=== PATIENT | female | born 1955 | race American Indian/Alaskan Native ===

== ENCOUNTER 2017-02-07 08:24 | Day surgery (SDC) | payer MEDICARE ==
[~2017-02-07 08:24] MED LIST: ANCEF/STERILE WATER 2 GM/20 ML 2 GM/20 ML SYRINGE IV NR; HEPARIN 10,000 UNITS/10 ML ONE; MARCAINE 0.5% INFILTRATI ONE; NACL 0.9% 1000 ML 1,000 ML IV SCH; NACL 0.9% 500 ML 500 ML ONE; NITROGLYCERIN SYRINGE 3 ML ONE; PROTAMINE SULFATE ONE
[2017-02-07] MEDS ORDERED: DILAUDID IV PRN (08:59)
--- NOTE | 2017-02-07 08:59 | Anesthesia Day of Surgery ---
Anesthesia Day of Surgery - Day of Surgery Patient Examined: Yes Patient H&P Reviewed: Yes Patient is NPO: Yes
[2017-02-07] MEDS ORDERED: PEPCID PO NR (09:00)
--- NOTE | 2017-02-07 09:01 | Anesthesia Consultation ---
Anesthesia Consult and Med Hx Date of service: 02/07/17 - Airway Anesthetic Teeth Evaluation: Good ROM Head & Neck: Adequate Mental/Hyoid Distance: Adequate Mallampati Class: Class II Intubation Access Assessment: Probably Good - Pulmonary Exam CTA: Yes - Cardiac Exam Cardiac Exam: RRR - Pre-Operative Health Status ASA Pre-Surgery Classification: ASA3, ASA4 Proposed Anesthetic Plan: General - Pulmonary Hx Smoking: Yes (1/2 PPD) Hx Asthma: Yes COPD: Yes Home Oxygen Therapy: No Hx Pneumonia: No Hx Sleep Apnea: Yes (No CPAP) - Cardiovascular System Hx Hypertension: Yes (X 16 YRS) Hx Coronary Artery Disease: No Hx Peripheral Vascular Disease: No - Central Nervous System Hx Seizures: No Hx Back Pain: No Hx Psychiatric Problems: No - Gastrointestinal Hx Gastroesophageal Reflux Disease: No - Endocrine Hx Renal Disease: Yes (CKD Stage 4, NOT ON DIALYSIS) Hx End Stage Renal Disease: No Hx Non-Insulin Dependent Diabetes: Yes (DENIES) Hx Thyroid Disease: No - Other Systems Hx Alcohol Use: No Hx Substance Use: No Hx Cancer: No Hx Obesity: Yes (BMI=35)
[2017-02-07] MEDS ORDERED: ZOFRAN IV PRN (09:30)
[2017-02-07 09:44] LABS: Basophils % (Auto) 0.7 % (0.0-1.8); Hematocrit 32.4 % (30.3-42.9); Hemoglobin 10.7 gm/dl (10.1-14.3); Mean Corpuscular HGB Conc 33 % (30-34); Mean Corpuscular Hemoglobin 29 pg (28-32); Mean Corpuscular Volume 86 fl (79-97); Platelet Count 207 K/mm3 (140-440); Red Blood Count 3.76 M/mm3 (3.65-5.03); Red Cell Distribution Width 14.2 % (13.2-15.2)
[2017-02-07] MEDS ORDERED: DIPRIVAN 10 MG/ML IV ONE (09:53)
[2017-02-07] MEDS ORDERED: XYLOCAINE MPF 2% ONE (09:53)
[2017-02-07 09:57] LABS: BUN/Creatinine Ratio 11.05; Calcium 10.1 mg/dL (8.4-10.2); Potassium 4.1 mmol/L (3.6-5.0)
[2017-02-07] MEDS ORDERED: DILAUDID ONE (10:09)
[2017-02-07] MEDS ORDERED: HEPARIN 10,000 UNITS/10 ML 2,000 UNIT in NACL 0.9% 500 ML 500 ML IR ONE (10:32)
[2017-02-07] MEDS ORDERED: NACL 0.9% IR ONE (10:32)
[2017-02-07] MEDS ORDERED: MARCAINE 0.5% INFILTRATI ONE (10:32)
[2017-02-07] MEDS ORDERED: ZOFRAN ONE ×2 (11:05→12:03)
[2017-02-07] MEDS ORDERED: DECADRON ONE (11:06)
--- NOTE | 2017-02-07 11:11 | Short Stay Summary ---
Short Stay Documentation Date of service: 02/07/17 Narrative H&P: See H&P - History H&P: obtained from office - Allergies and Medications Current Medications: Allergies No Known Allergies Allergy (Unverified 02/06/17 11:21) Home Medications Medication Instructions Recorded Confirmed Last Taken Type Calcitriol [Rocaltrol] 1 mg PO 3XW 02/08/16 02/07/17 02/06/17 History Cyclobenzaprine [Flexeril] 10 mg PO BID 02/06/17 02/07/17 02/06/17 History Hydrochlorothiazide [HCTZ] 25 mg PO QDAY 02/06/17 02/07/17 02/06/17 History Latanoprost 0.005% [Xalatan 0.005%] 1 drop OP QPM 02/06/17 02/07/17 02/06/17 History NIFEdipine XL [Procardia Xl] 90 mg PO QDAY 02/06/17 02/07/17 02/06/17 History Pantoprazole [Protonix] 40 mg PO QDAY 02/06/17 02/07/17 02/06/17 History Active Medications Famotidine (Pepcid) 20 mg PO PREOP NR Stop: 02/07/17 12:00 Last Admin: 02/07/17 09:35 Dose: 20 mg Hydromorphone HCl (Dilaudid) 0.5 mg IV Q10MIN PRN PRN Reason: Pain , Severe (7-10) Stop: 02/07/17 12:00 Cefazolin Sodium (Ancef/Sterile Water 2 Gm/20 Ml) 2 gm in 20 mls @ 80 mls/hr IV PREOP NR PRN Reason: Protocol Stop: 02/07/17 23:59 Sodium Chloride (Nacl 0.9% 1000 Ml) 1,000 mls @ 42 mls/hr IV DIRECT CANDY Last Admin: 02/07/17 09:30 Dose: 42 mls/hr - Brief post op/procedure progress note Date of procedure: 02/07/17 Pre-op diagnosis: Chronic Renal Insufficiency Post-op diagnosis: same Procedure: Creation of Left Brachiocephalic Arteriovenous Fistula Anesthesia: GETA Surgeon: CARLOS ALBERTO SERNA Estimated blood loss: minimal Pathology: none Condition: stable - Disposition Condition at discharge: Good Disposition: DC-01 TO HOME OR SELFCARE Short Stay Discharge Plan Activity: other (no heavy lifting with left arm) Wound: open to air, keep clean and dry, other (okay to wash the wound with soap and water but do not soak in water) Follow up with: CARLOS ALBERTO SERNA MD [Staff Physician] - 14 Days Prescriptions: HYDROcodone/APAP 7.5-325 [[place] 7.5/325] 1 each PO Q6HR PRN #40 tablet PRN Reason: Pain
--- NOTE | 2017-02-07 11:13 | Operative Report ---
Operative Report Operative Report: Date of procedure: 02/07/2017 Pre-operative diagnosis: Chronic Renal Insufficiency Post-operative diagnosis: Same Procedure(s): Creation of Left Brachial Artery to Cephalic Vein Arteriovenous Fistula Surgeon: Vaughn Muhammad MD Behaviour Support Teacher: None Anesthesia: Gen. endotracheal anesthesia EBL: Minimal Counts: Correct Complications: None Condition: Stable Findings: Successful creation of left brachiocephalic arteriovenous fistula with palpable thrill and palpable radial pulse at the completion of the case. Specimen: None Indications: The patient is a 61-year-old female with history of chronic renal failure was not yet on hemodialysis. It is anticipated that she will require dialysis for the next several months so she was referred to me for possible creation of long- term access in anticipation of dialysis. She had a vein mapping that demonstrated she was an adequate candidate for an AV fistula so she was given the risk, benefits, and alternative procedures and consented to the procedure. Description of Procedure: The patient was brought to the operating room and laid in supine position after general endotracheal anesthesia was administered the patient was prepped and draped in normal sterile fashion. After anesthetizing the skin a transverse incision was created just below the antecubital crease. Dissection was carried down to the the cephalic vein using sharp dissection. The vein was dissected out both proximally and distally and suture ligated and divided distally. I then ran a 3 Leora proximally in the vein, to ensure patency of the vein. Then flushed the vein with heparinized saline and flow was controlled with a bulldog clamp. I then dissected out the brachial artery through this incision circumferentially both proximal and distal and controlled the artery with vessel loops. I then placed the vessel loops on tension controlling the flow through the artery and created an arteriotomy using an 11 blade and Gunter scissors. I created an end to side anastomosis between the cephalic vein and brachial artery using a 6-0 Prolene in running fashion. Prior to completing the anastomosis I flushed the artery both proximally and distally and then advanced a 3 Leora proximally to break the spasm in the artery. I then completed the anastomosis and removed all vessel loops allowing flow into the fistula which had an excellent thrill. I achieved hemostasis with a combination of direct pressure and electrocautery. Once hemostasis was achieved I anesthetized the wound with Marcaine. I then closed the wound in 2 layers and 3-0 Vicryl in a running fashion to close the deep dermal layer and 4- 0 Monocryl in a running fashion in the subcuticular layer. I dressed the wound with Surgicel. The patient tolerated the procedure well, all sponge needle and instrument counts were correct. The patient was taken to recovery in stable condition.
[2017-02-07] MEDS ORDERED: APRESOLINE IV PRN (11:25)
[2017-02-07] MEDS ORDERED: APRESOLINE ONE (11:27)
[2017-02-07] MEDS ORDERED: NORCO 7.5/325 PO SCH (13:19)
[2017-02-07 14:28] VITALS: BP 139/57
== END 2017-02-07 13:39 | disposition home or self-care (01) ==
LOC: OR 08:24
PROVIDERS: ATTEND Surgery Vascular Surgery
DX: I12.9 Hypertensive chronic kidney disease with stage 1 through stage 4 chronic kidney disease, or unspecified chronic kidney disease (principal); N18.4 Chronic kidney disease, stage 4 (severe); J44.9 Chronic obstructive pulmonary disease, unspecified; K21.9 Gastro-esophageal reflux disease without esophagitis; E66.9 Obesity, unspecified; Z68.35 Body mass index [BMI] 35.0-35.9, adult; Z87.891 Personal history of nicotine dependence; Z90.710 Acquired absence of both cervix and uterus; Z98.890 Other specified postprocedural states; Z79.899 Other long term (current) drug therapy; Z80.9 Family history of malignant neoplasm, unspecified; Z82.49 Family history of ischemic heart disease and other diseases of the circulatory system
CPT/HCPCS: 36415; 36821; 80048; 85025; C1757; J0360; J0690; J1100; J1170; J1644; J2405; J2704; J2720; J7030; J7040